=== PATIENT | female | born 1960 | race Caucasian/White ===

== ENCOUNTER 2016-10-06 09:08 | Emergency (ER) | payer SELFPAY ==
[~2016-10-06] VITALS: Ht 162.6 cm; Wt 74.5 kg
[2016-10-06 09:27] LABS: GLUCOSE,POINT OF CARE 346 MG/DL (70-110)
[2016-10-06] MEDS ORDERED: CARV3 PO (09:31)
[2016-10-06] MEDS ORDERED: LISI-660 PO (09:31)
[2016-10-06] MEDS ORDERED: METF500T4 PO (09:31)
[2016-10-06] MEDS ORDERED: ASPI81 PO (09:31)
[2016-10-06] MEDS ORDERED: METHOCARBAMOL 500 MG TABLET PO ONE (11:00)
[2016-10-06] MEDS ORDERED: KETOROLAC TROMETHAMINE 60 MG/2 ML VIAL IM ONE (11:00)
[2016-10-06 11:56] VITALS: BP 110/71
== END 2016-10-06 11:58 | disposition home or self-care (01) ==
LOC: EMS 09:11
DX: S29.012A Strain of muscle and tendon of back wall of thorax, initial encounter (principal); E78.00 Pure hypercholesterolemia, unspecified; E11.9 Type 2 diabetes mellitus without complications; I10 Essential (primary) hypertension; F17.210 Nicotine dependence, cigarettes, uncomplicated; Z79.82 Long term (current) use of aspirin; V49.9XXA Car occupant (driver) (passenger) injured in unspecified traffic accident, initial encounter; Y93.89 Activity, other specified; Y92.89 Other specified places as the place of occurrence of the external cause; Y99.8 Other external cause status
CPT/HCPCS: 82962; 96372; 99283; J1885